=== PATIENT | female | born 1960 | race Caucasian/White ===

== ENCOUNTER 2020-09-07 08:33 | Day surgery (SDC) | payer OTHER ==
[~2020-09-07] VITALS: Ht 162.6 cm; Wt 44.0 kg
[2020-09-07 09:46] VITALS: BP 131/68; PULSE 60; TEMP 97.6
[2020-09-07] MEDS ORDERED: TENORMIN 2525 MG/TAB PO (09:57)
[2020-09-07] MEDS ORDERED: LIORESAL20 MG PO (09:57)
[2020-09-07] MEDS ORDERED: ASPIRIN E.C. 8181 MG PO (09:57)
[2020-09-07] MEDS ORDERED: SYNTHROID0.075 MG/T PO (09:58)
[2020-09-07] MEDS ORDERED: SYNTHROID0.088 MG/T PO (09:58)
[2020-09-07] MEDS ORDERED: LIPITOR20 MG PO (10:00)
[2020-09-07] MEDS ORDERED: CALCIUM 600600 MG PO (10:01)
[2020-09-07] MEDS ORDERED: D3-5050000 IU PO (10:01)
[2020-09-07] MEDS ORDERED: BONIVA150 MG PO (10:02)
--- NOTE | 2020-09-07 10:03 | NUR ---
TO SHANTELL AT 0917-CALL LIGHT IN REACH
[2020-09-07 11:47] VITALS: TEMP 97.6
[2020-09-07 12:07] VITALS: BP 130/67; PULSE 52
--- NOTE | 2020-09-07 12:07 | NUR ---
TO RM 7 PER CART FROM PACU. ALERT ORIENTED X3, TALKING TO STAFF. DENIES PAIN OR DISCOMFORT. DENIES NAUSEA OR VOMITING. RECEIVED SPRITE AND CRACKERS.
[2020-09-07 12:20] VITALS: BP 128/62; PULSE 58
--- NOTE | 2020-09-07 12:20 | NUR ---
ATE 100% AND TOLERATED WELL.
--- NOTE | 2020-09-07 12:30 | NUR ---
AMBULATED TO BATHROOM. UPON STANDING UP TO WASH HANDS. BLOOD IN TOILET AND ON FLOOR APPROX 30CC. DR BYRNE CALLED/UPDATED, NO NEW ORDERS. RECEIVED PERICARE AND NEW PAD. CALLED FOR RIDE. DISCONTINUED IV AND INT- CATHETER INTACT. PATIENT GETTING DRESSED.
--- NOTE | 2020-09-07 12:50 | NUR ---
RECEIVED DISCHARGE INSTRUCTIONS AND PATIENT VERBALIZED UNDERSTANDING.
--- NOTE | 2020-09-07 13:00 | NUR ---
DISCHARGED PER WC BY NURSING STAFF TO PRIVATE CAR IN CARE OF FRIEND RUSSEL.
== END 2020-09-07 13:00 | disposition home or self-care (01) ==
LOC: SDCO 08:33
DX: Z87.440 Personal history of urinary (tract) infections (principal); E78.00 Pure hypercholesterolemia, unspecified; Z90.710 Acquired absence of both cervix and uterus; Z88.1 Allergy status to other antibiotic agents; Z88.8 Allergy status to other drugs, medicaments and biological substances; Z96.643 Presence of artificial hip joint, bilateral; Z79.82 Long term (current) use of aspirin; Z87.891 Personal history of nicotine dependence
CPT/HCPCS: C1769; J0690; J1100; J1885; J2405; J2704; J3010; J7120; Q9967

== ENCOUNTER → 2024-04-16 | Outpatient (CLI) | payer MEDICARE, OTHER ==
[~2024-04-16] MED LIST: ASPIRIN E.C. 8181 MG PO; BONIVA150 MG PO; CALCIUM 600600 MG PO; D3-5050000 IU PO; LIORESAL20 MG PO; LIPITOR20 MG PO; SYNTHROID0.075 MG/T PO; SYNTHROID0.088 MG/T PO; TENORMIN 2525 MG/TAB PO
== END ==
LOC: COL.RAD 09:24
DX: N26.1 Atrophy of kidney (terminal) (principal); N28.89 Other specified disorders of kidney and ureter; Z87.440 Personal history of urinary (tract) infections

== ENCOUNTER → 2024-05-26 | Outpatient (CLI) | payer MEDICARE, OTHER | LOC: COL.RAD 11:11 | DX: N13.30 Unspecified hydronephrosis (principal) | CPT/HCPCS: A9562 ==